=== PATIENT | male | born 2000 | race Two or more races ===

== ENCOUNTER 2023-04-01 03:28 | Inpatient (IN) | payer OTHER ==
[~2023-04-01] VITALS: Ht 167.6 cm; Wt 65.8 kg
== END 2023-04-02 11:12 | disposition home or self-care (01) | DRG 343 ==
LOC: ER 03:28 → MEDI 14:18
PROVIDERS: Surgery; ADMIT Internal Medicine; ATTEND Internal Medicine
PROC: BW21Y0Z Computerized Tomography (CT Scan) of Abdomen and Pelvis using Other Contrast, Unenhanced and Enhanced (ICD-10-PCS; 2023-04-01)
PROC: 0DTJ4ZZ Resection of Appendix, Percutaneous Endoscopic Approach (ICD-10-PCS; principal; 2023-04-01 13:00)
DX: K35.890 Other acute appendicitis without perforation or gangrene (principal); Z20.822 Contact with and (suspected) exposure to COVID-19